=== PATIENT | male | born 1995 | race American Indian/Alaskan Native ===

== ENCOUNTER 2020-08-07 09:26 | Emergency (ER) | payer OTHER ==
[2020-08-07 09:31] VITALS: BP 137/88
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
== END 2020-08-07 11:34 | disposition home or self-care (01) ==
LOC: ED 09:26
DX: T25.221A Burn of second degree of right foot, initial encounter (principal); X08.8XXA Exposure to other specified smoke, fire and flames, initial encounter; Y93.89 Activity, other specified; Y92.89 Other specified places as the place of occurrence of the external cause; Y99.8 Other external cause status
CPT/HCPCS: 99282